=== PATIENT | male | born 1980 | race Two or more races ===

== ENCOUNTER → 2016-10-07 | Emergency (ER) | payer MEDICAID ==
[~2016-10-07] VITALS: Ht 170.2 cm; Wt 59.0 kg
[2016-10-07 05:19] VITALS: BP 151/90
--- NOTE | 2016-10-07 05:29 | Emergency Room Report ---
History of Present Illness General Chief Complaint: Palpitations Source: Patient Present Illness HPI Is a 36-year-old male with no past history. He presents with chief complaint of feeling anxious and palpitation. This occurred after he drank 2 large cup of coffee. He said this happened to him twice before when he drank a lot of coffee. Denies suicidal thought homicidal thought. Said his heart was beating fast. He came in because he felt tightness to his jaw and neck. No chest pain. No nausea no vomiting. No diaphoresis. This occurred 3 hours ago. He felt better now. Allergies: Coded Allergies: AMOXICILLIN (Verified Allergy, Unknown, 10/07/16) Patient History Past Medical History: see triage record, old chart reviewed Past Surgical History: none Pertinent Family History: none Social History: Denies: smoking Immunizations: other Reviewed Nursing Documentation: PMH: Agreed, PSxH: Agreed Nursing Documentation-PMH Hx Hypertension: Yes Review of Systems Eye: Denies: blurred vision, eye pain ENT: Denies: ear pain, nose congestion, throat swelling Respiratory: Denies: cough, shortness of breath Cardiovascular: Denies: chest pain, palpitations Gastrointestinal: Denies: abdominal pain, diarrhea, nausea, vomiting Musculoskeletal: Denies: back pain, joint pain Skin: Denies: rash Neurological: Denies: headache, numbness Endocrine: Denies: increased thirst, increased urine Hematologic/Lymphatic: Denies: easy bruising All Other Systems: negative except mentioned in HPI Physical Exam Vital Signs Date Time Temp Pulse Resp B/P Pulse Ox O2 Delivery O2 Flow Rate FiO2 10/07/16 05:10 97.9 72 7 151/90 100 Room Air vitals normal Sp02 EP Interpretation: reviewed, normal General Appearance: well appearing, no apparent distress, alert Head: normocephalic, atraumatic Eyes: bilateral eye EOMI, bilateral eye PERRL ENT: hearing grossly normal, normal pharynx Neck: full range of motion, supple, no meningismus Respiratory: chest non-tender, lungs clear, normal breath sounds Cardiovascular #1: regular rate, rhythm, no murmur Gastrointestinal: normal bowel sounds, non tender, no mass, no organomegaly, no bruit, non-distended Musculoskeletal: back normal, gait/station normal, normal range of motion Psychiatric: mood/affect normal Skin: warm/dry Medical Decision Making Diagnostic Impression: Primary Impression: Palpitations ER Course Patient present with palpitation probably anxiety related secondary to caffeine. No suicidal thought homicidal thought. His better now. Heart rate in the 70s. Blood pressure improved. We'll discharge home. I see no evidence of ACS, PE, dissection. EKG Diagnostic Results Rate: normal Rhythm: NSR ST Segments: no acute changes Rhythm Strip Diag. Results EP Interpretation: yes Rate: 71 Rhythm: NSR, no PVC's, no ectopy Last Vital Signs Date Time Temp Pulse Resp B/P Pulse Ox O2 Delivery O2 Flow Rate FiO2 10/07/16 05:19 97.9 74 12 151/90 100 Room Air Status: improved Disposition: HOME, SELF-CARE Condition: Stable Patient Instructions: Palpitations Additional Instructions: Followup with your Dr. in 7 days. Cut down on your coffee. Cut down on caffeine, nicotine or any stimulants. A Hernandez [id number] cough and cold medication. STUART BIRD M.D. Oct 07, 2016 05:29
[2016-10-07 05:31] VITALS: BP 151/90
--- NOTE | 2016-10-07 13:03 | Cardiology Report ---
APPROVED REPORT EKG Measurement Heart [id number] Normal sinus rhythm with sinus arrhythmia Normal ECG
== END | disposition home or self-care (01) ==
LOC: EMR 05:25
DX: R00.2 Palpitations (principal); F41.9 Anxiety disorder, unspecified; R68.84 Jaw pain; M54.2 Cervicalgia; I10 Essential (primary) hypertension; Z88.1 Allergy status to other antibiotic agents
CPT/HCPCS: 93005; 99283

== ENCOUNTER 2016-12-16 23:29 | Emergency (ER) | payer MEDICAID ==
[~2016-12-16] VITALS: Ht 165.1 cm; Wt 68.0 kg
[2016-12-16 23:35] VITALS: BP 122/80
[2016-12-17] MEDS ORDERED: Surgicel 4in x 8in TOPIC ONE
[2016-12-17] MEDS ORDERED: Tetanus/Diptheria/Pertussis Vaccine 0.5ml Syr IM ONE
[2016-12-17] MEDS ORDERED: DOXYCYCLINE MO100 MG ORAL (00:53)
--- NOTE | 2016-12-17 00:54 | Emergency Room Report ---
History of Present Illness General Chief Complaint: Laceration Source: Patient Present Illness HPI This is a 36-year-old male who is right-hand dominant. He presents with a laceration to his left thumb. He was in the garage and went to grab something. It was a sharp metal sheet that cause a laceration to his thumb. Onset was just prior to arrival. Pain is 10 out of 10. Bleeding. No other complaint. No other injury. Allergies: Coded Allergies: AMOXICILLIN (Verified Allergy, Unknown, 10/07/16) Patient History Past Medical History: see triage record, old chart reviewed Past Surgical History: none Pertinent Family History: none Social History: Denies: smoking Immunizations: other Reviewed Nursing Documentation: PMH: Agreed, PSxH: Agreed Nursing Documentation-PMH Hx Hypertension: Yes Review of Systems Eye: Denies: blurred vision, eye pain ENT: Denies: ear pain, nose congestion, throat swelling Respiratory: Denies: cough, shortness of breath Cardiovascular: Denies: chest pain, palpitations Gastrointestinal: Denies: abdominal pain, diarrhea, nausea, vomiting Musculoskeletal: Denies: back pain, joint pain Skin: Denies: rash Neurological: Denies: headache, numbness Endocrine: Denies: increased thirst, increased urine Hematologic/Lymphatic: Denies: easy bruising All Other Systems: negative except mentioned in HPI Physical Exam Vital Signs Date Time Temp Pulse Resp B/P Pulse Ox O2 Delivery O2 Flow Rate FiO2 12/16/16 23:31 98.1 85 18 122/80 98 Room Air vitals normal Sp02 EP Interpretation: reviewed, normal General Appearance: well appearing, no apparent distress, alert Head: normocephalic, atraumatic Eyes: bilateral eye EOMI, bilateral eye PERRL ENT: hearing grossly normal, normal pharynx Neck: full range of motion, supple, no meningismus Respiratory: chest non-tender, lungs clear, normal breath sounds Cardiovascular #1: regular rate, rhythm, no murmur Gastrointestinal: normal bowel sounds, non tender, no mass, no organomegaly, no bruit, non-distended Musculoskeletal: back normal, gait/station normal, normal range of motion, other - Left thumb on the radial aspect has a 2 cm laceration. There is skin avulsion. There is brisk oozing of blood. Full range of motion. No tendon lac. no FB Psychiatric: mood/affect normal Skin: warm/dry Procedures Laceration/Wound Repair Laceration/Wound Repair : Consent: Verbal Wound Location: upper extremity Wound's Depth, Shape: irregular Wound Length (cm): 2 Wound Explored: clean Irrigated w/ Saline (ccs): 1000 Anesthesia: 1% Lidocaine Volume Anesthetic (ccs): 2 Wound Repaired With: sutures Suture Size/Type: 6:0, proline Number of Sutures: 5 Patient Tolerated: Well Complications: None Progress Local anesthetic with 1% lidocaine. I pull the edges as close as possible. Bleeding stopped. 5 interrupted sutures placed. Medical Decision Making Diagnostic Impression: Primary Impression: Laceration of finger of left hand Qualified Codes: S61.012A - Laceration without foreign body of left thumb without damage to nail, initial encounter Additional Impression: Skin avulsion ER Course Patient with skin avulsion and laceration. No foreign body. No tendon laceration. We'll discharge home. Last Vital Signs Date Time Temp Pulse Resp B/P Pulse Ox O2 Delivery O2 Flow Rate FiO2 12/16/16 23:31 98.1 85 18 122/80 98 Room Air Status: improved Disposition: HOME, SELF-CARE Condition: Stable Scripts Doxycycline Monohydrate* (DOXYCYCLINE MONOHYDRATE*) 100 Mg Capsule 100 MG ORAL Q12H, #14 CAP 0 Refills Prov: STUART BIRD M.D. 12/17/16 Referrals: NOT CHOSEN IPA/,REFERRING (PCP) Patient Instructions: Laceration Care, Adult Additional Instructions: Followup with your DrSherri for recheck in 2-3 days. Suture out in 10 days. Return if worse. Hold pressure if bleeding. STUART BIRD M.D. Dec 17, 2016 00:54
[2016-12-17 01:09] VITALS: BP 111/71
[2016-12-20] MEDS ORDERED: BACITRACIN-P28.35 GM TP (19:08)
== END 2016-12-17 01:09 | disposition home or self-care (01) ==
LOC: EMR 23:58
DX: S61.012A Laceration without foreign body of left thumb without damage to nail, initial encounter (principal); W26.8XXA Contact with other sharp object(s), not elsewhere classified, initial encounter; Y92.89 Other specified places as the place of occurrence of the external cause; Z23 Encounter for immunization; I10 Essential (primary) hypertension; Z88.0 Allergy status to penicillin
CPT/HCPCS: 12001; 90471; 90715; 96372; 99284; Z7502

== ENCOUNTER → 2016-12-20 | Emergency (ER) | payer MEDICAID ==
[~2016-12-20] VITALS: Ht 165.1 cm; Wt 59.4 kg
[~2016-12-20] MED LIST: BACITRACIN-P28.35 GM TP; DOXYCYCLINE MO100 MG ORAL
--- NOTE | 2016-12-20 19:07 | Emergency Room Report ---
History of Present Illness General Chief Complaint: Wound Recheck/Suture Removal Present Illness HPI 36 YO Male presents to the ED c/o : recently sutured laceration to the left thumb 3 days ago, denies increased pain, erythema, d/c , fevers, or chills. pt. states he has been cleaning wound daily with alcohol, and taking PO abx as prescribed. Denies numbness tingling or loss of sensation or gross motor movements of the extremities, incontinence of bowel or bladder. Denies CP, Palpitations, LOC, AMS, dizziness, Changes in Vision, Sensation, paresthesias, or a sudden severe headache. Allergies: Coded Allergies: AMOXICILLIN (Verified Allergy, Unknown, 12/20/16) Patient History Past Medical History: see triage record Past Surgical History: none Pertinent Family History: none Immunizations: UTD Reviewed Nursing Documentation: PMH: Agreed, PSxH: Agreed Nursing Documentation-PMH Hx Hypertension: Yes Review of Systems All Other Systems: negative except mentioned in HPI Physical Exam Vital Signs Date Time Temp Pulse Resp B/P Pulse Ox O2 Delivery O2 Flow Rate FiO2 12/20/16 18:59 98.1 69 16 130/78 97 Room Air Sp02 EP Interpretation: reviewed, normal General Appearance: no apparent distress, alert, GCS 15, non-toxic Head: normocephalic, atraumatic Eyes: bilateral eye PERRL, bilateral eye normal inspection ENT: hearing grossly normal, normal pharynx, no angioedema, normal voice Neck: full range of motion, supple/symm/no masses Respiratory: lungs clear, normal breath sounds, speaking full sentences Cardiovascular #1: regular rate, rhythm, no edema, normal capillary refill Genitourinary: normal inspection, no CVA tenderness Musculoskeletal: back normal, gait/station normal, normal range of motion, non- tender Neurologic: alert, oriented x3, responsive, motor strength/tone normal, sensory intact, speech normal Psychiatric: judgement/insight normal, memory normal, mood/affect normal Skin: normal color, no rash, warm/dry, well hydrated, wd healing/no infection noted - healing sutured avulsion laceration of the left thumb, no evidence of infection at this time. 2 cm in length. Medical Decision Making PA Attestation Dr. tejada is my supervising Physician whom patient management has been discussed with. Diagnostic Impression: Primary Impression: Encounter for wound re-check ER Course Pt. presents to the ED c/o : recently sutured laceration to the left thumb 3 days ago, denies increased pain, erythema, d/c , fevers, or chills. Ddx considered but are not limited to laceration, tendon injury, cellulitis, dehiscence. Vital signs: are WNL, pt. is afebrile H&PE are most consistent with: healing sutured avulsion laceration of the left thumb, no evidence of infection at this time. ORDERS: none required at this time, the diagnosis is clinical ED INTERVENTIONS: - wound dressing applied. DISCHARGE: At this time pt. is stable for d/c to home. Will provide printed patient care instructions, and any necessary prescriptions. Care plan and follow up instructions have been discussed with the patient prior to discharge. Last Vital Signs Date Time Temp Pulse Resp B/P Pulse Ox O2 Delivery O2 Flow Rate FiO2 12/20/16 18:59 98.1 69 16 130/78 97 Room Air Disposition: HOME, SELF-CARE Condition: Stable Scripts Bacitracin/Polymyxin B Sulfate (BACITRACIN-POLYMYXIN OINTMENT) 28.35 Gm Oint...g. 1 APPLIC TP BID, #28.3 GM Prov: Yarely Jang 12/20/16 Patient Instructions: Wound Check Additional Instructions: Take medications as directed. Follow up with a Primary Care Provider in 3-5 days, even if your symptoms have resolved. Suture removal can be performed there 10 days after they were placed. --Please review list of primary care clinics, if you do not already have a primary care provider Return sooner to ED if new symptoms occur, or current symptoms become worse. - Please note that this Emergency Department Report was dictated using [employer] coordinator technology software, occasionally this can lead to erroneous entry secondary to interpretation by the dictation equipment. Yarely Jang Dec 20, 2016 19:07
[2016-12-20 19:08] VITALS: BP 130/78
[2016-12-20 19:20] VITALS: BP 130/78
== END | disposition home or self-care (01) ==
LOC: EMR 19:15
DX: S61.012D Laceration without foreign body of left thumb without damage to nail, subsequent encounter (principal); I10 Essential (primary) hypertension; Z88.1 Allergy status to other antibiotic agents; Z48.01 Encounter for change or removal of surgical wound dressing
CPT/HCPCS: 99283

== ENCOUNTER 2016-12-29 18:48 | Emergency (ER) | payer MEDICAID ==
[~2016-12-29] VITALS: Ht 167.6 cm; Wt 59.0 kg
[2016-12-29 19:10] VITALS: BP 127/79
[2016-12-29 19:25] VITALS: BP 127/79
--- NOTE | 2016-12-29 20:36 | Emergency Room Report ---
History of Present Illness General Chief Complaint: Wound Recheck/Suture Removal Source: Patient Present Illness HPI The patient is a 36-year-old male presenting for suture removal of the left hand. Sutures were placed 2 weeks prior. he denies any pain at this time and denies other symptoms including N, V, F, chills, rash, numbness/tingling Allergies: Coded Allergies: AMOXICILLIN (Verified Allergy, Unknown, 12/20/16) Patient History Past Medical History: see triage record Pertinent Family History: none Reviewed Nursing Documentation: PMH: Agreed, PSxH: Agreed Nursing Documentation-PMH Past Medical History: No Stated History Hx Hypertension: Yes Review of Systems All Other Systems: negative except mentioned in HPI Physical Exam Vital Signs Date Time Temp Pulse Resp B/P Pulse Ox O2 Delivery O2 Flow Rate FiO2 12/29/16 18:53 98.4 63 18 127/79 98 Room Air Sp02 EP Interpretation: reviewed, normal General Appearance: no apparent distress, alert, GCS 15, non-toxic Head: normocephalic, atraumatic Eyes: bilateral eye PERRL, bilateral eye normal inspection Musculoskeletal: back normal, gait/station normal, normal range of motion, non- tender Neurologic: alert, oriented x3, responsive, motor strength/tone normal, sensory intact, speech normal Psychiatric: judgement/insight normal, memory normal, mood/affect normal, no suicidal/homicidal ideation Skin: normal turgor, wd healing/no infection noted, laceration - L thumb sutures intact. Well healing Lymphatic: no adenopathy Medical Decision Making PA Attestation Dr. Escobedo is my supervising physician. Patient management was discussed with my supervising physician Diagnostic Impression: Primary Impression: Encounter for removal of sutures Additional Impression: Encounter for wound re-check ER Course The patient is a 36-year-old male presenting for suture removal of the left hand Differential diagnosis considered: Wound infection, nonhealing wound, cellulitis , abscess Suture removal: All simple interrupted sutures were removed from L thumb without complication. No bleeding or discharge. Wound is well approximated. No surrounding erythema. ER precautions given Last Vital Signs Date Time Temp Pulse Resp B/P Pulse Ox O2 Delivery O2 Flow Rate FiO2 12/29/16 19:25 98.4 63 16 127/79 99 Room Air Status: improved Disposition: HOME, SELF-CARE Condition: Improved Referrals: NOT CHOSEN IPA/MD,REFERRING (PCP) Patient Instructions: Wound Check, Suture Removal, Care After Additional Instructions: I discussed my findings with the patient. All questions and concerns have been answered. Treatment and medication compliance have been addressed. I advised the patient that they need to follow up with PMD in 3-5 days. Return to ED if symptoms worsen, new symptoms arise, or if needed for any reason. Patient verbalized understanding of discharge instructions. GAGE ENGLE Dec 29, 2016 20:36
== END 2016-12-29 19:25 | disposition home or self-care (01) ==
LOC: EMR 19:06
DX: S61.012D Laceration without foreign body of left thumb without damage to nail, subsequent encounter (principal); W45.8XXD Other foreign body or object entering through skin, subsequent encounter; Z48.02 Encounter for removal of sutures; I10 Essential (primary) hypertension; Z88.0 Allergy status to penicillin
CPT/HCPCS: 99281